=== PATIENT | male | born 1960 | race Caucasian/White ===

== ENCOUNTER → 2019-09-07 | Outpatient (CLI) | payer OTHER | LOC: M.CT 12:51 | PROVIDERS: ATTEND Family Medicine | DX: Z13.6 Encounter for screening for cardiovascular disorders (principal) ==

== ENCOUNTER → 2019-09-14 | Outpatient (CLI) | payer BC | LOC: M.CT 10:15 | PROVIDERS: ATTEND Family Medicine | DX: K40.90 Unilateral inguinal hernia, without obstruction or gangrene, not specified as recurrent (principal); K57.30 Diverticulosis of large intestine without perforation or abscess without bleeding; I70.0 Atherosclerosis of aorta ==

== ENCOUNTER → 2019-12-21 | Outpatient (CLI) | payer BC ==
--- NOTE | 2019-12-21 14:22 | 2DMMODE ---
[place] [address] 2 D/M-MODE ECHOCARDIOGRAM Name: CARTER LÓPEZ Room: [facility]#: [id number] Admission: 12/21/19 Attend Phys: Curry Hager, Discharge: Date of : 58 Date of Service: 12/21/19 1421 Report #: [id number] THIS REPORT FOR: cc: Mary Ascencio,Mary Borrero,Nishant Beard MD [facility] ~ APPROVED REPORT Study performed: 12/21/2019 10:21:59 EXAM: Comprehensive 2D, Doppler, and color-flow Echocardiogram Patient Location: Out-Patient BSA: 1.92 HR: 62 bpm BP: 140/87 mmHg Other Information Study Quality: Good Indications Abnormal screening 2D Dimensions IVSd: 11.16 (7-11mm) LVOT Diam: 20.59 (18-24mm) LVDd: 46.89 mm PWd: 10.08 (7-11mm) Ascending Ao: 33.68 (22-36mm) LVDs: 31.29 (25-40mm) Aortic Root: 36.70 mm Volumes Left Atrial Volume (Systole) LA ESV Index: 26.30 mL/m2 Aortic Valve AoV Peak Lazaro.: 0.97 m/s AO Peak Gr.: 3.78 mmHg LVOT Max P.38 mmHg AO Mean Gr.: 1.90 mmHg LVOT Mean P.39 mmHg LVOT Max V: 0.92 m/s AO V2 VTI: 18.79 cm LVOT Mean V: 0.52 m/s CHELLY (VTI): 3.53 cm2 LVOT V1 VTI: 19.93 cm Mitral Valve E/A Ratio: 0.98 [place] [address] 2 D/M-MODE ECHOCARDIOGRAM Name: CARTER LÓPEZ Room: [facility]#: [id number] Admission: 12/21/19 Attend Phys: Curry Hager, Discharge: Date of : 58 Date of Service: 12/21/19 1421 Report #: [id number] MV Decel. Time: 232.06 ms MV E Max Lazaro.: 0.58 m/s MV PHT: 67.30 ms MVA (PHT): 3.27 cm2 TDI E/Lateral E': 4.14 E/Medial E': 5.27 Medial E' Lazaro.: 0.11 m/s Lateral E' Lazaro.: 0.14 m/s Pulmonary Valve PV Peak Lazaro.: 0.98 m/s PV Peak Gr.: 3.85 mmHg Tricuspid Valve RAP Estimate: 5.00 mmHg TR Peak Gr.: 23.07 mmHg RVSP: 28.07 mmHg PA Pressure: 28.07 mmHg Left Ventricle The left ventricle is normal size. There is normal LV segmental wall motion. There is normal left ventricular wall thickness. Left ventricular systolic function is normal. The left ventricular ejection fraction is within the normal range. LVEF is 55%. The left ventricular diastolic function is normal. Right Ventricle The right ventricle is normal size. The right ventricular systolic function is normal. Atria The left atrium size is normal. The right atrium size is normal. Aortic Valve The aortic valve is normal in structure. No aortic regurgitation is present. There is no aortic valvular stenosis. Mitral Valve The mitral valve is normal in structure. Mild mitral regurgitation. No evidence of mitral valve stenosis. Tricuspid Valve The tricuspid valve is normal in structure. Mild tricuspid regurgitation[place] [address] 2 D/M-MODE ECHOCARDIOGRAM Name: CARTER LÓPEZ Room: [facility]#: [id number] Admission: 12/21/19 Attend Phys: Curry Hager, Discharge: Date of : 58 Date of Service: 12/21/19 1421 Report #: [id number] The pulmonary valve is normal in structure. There is no pulmonic valvular regurgitation. Great Vessels The aortic root is normal in size. IVC is normal in size and collapses >50% with inspiration. Pericardium There is no pericardial effusion. <Conclusion> The left ventricle is normal size. There is normal left ventricular wall thickness. Left ventricular systolic function is normal. The left ventricular ejection fraction is within the normal range. LVEF is 55%. The left ventricular diastolic function is normal. The right ventricle is normal size. The left atrium size is normal. The aortic valve is normal in structure. The mitral valve is normal in structure. Mild mitral regurgitation. The tricuspid valve is normal in structure. Mild tricuspid regurgitation. IVC is normal in size and collapses >50% with inspiration. There is no pericardial effusion. There is normal LV segmental wall motion. <ELECTRONICALLY SIGNED> By: Nishant Don MD, FACC 12/21/19 142 20 142 Nishant Don MD, FACC /INF
--- NOTE | 2019-12-21 17:57 | CARDNUC ---
[place] [address] CARDIAC NUCLEAR IMAGING REPORT Name: CARTER LÓPEZ Room: [facility]#: [id number] Admission: 12/21/19 Attend Phys: Curry Hager, Discharge: Date of : 58 Date of Service: 12/21/19 1756 Report #: [id number] THIS REPORT FOR: cc: Mary Ascencio Linda J. DO Liston, Michael J. MD [facility] ~ APPROVED REPORT Study performed: 12/21/2019 09:39:09 Exam: Nuclear Stress Test Indication: ABN CT of heart, increased calcium score, ABN EKG. Patient Location: Out-Patient Stress Tech: Su Dean Stress Nurse: Mitchell Redd Tech:PHILLY Casper Ht: 5 ft 9 in Wt: 168 lbs BSA: 1.92 m2 BMI: 24.80 Medical History Medical History: HTN, Hyperlipidemia, Smoking, ABN EKG, LVH, ABN CT of heart, increased calcium score. Medications: Norvasc, Atorvastatin, Fish Oil. Allergies: No known drug allergies Cardiac Risk Factors: Current Smoker, Age, FHX of CAD, HTN, Hyperlipidemia, LVH, increased calcium score, ABN CT of heart. Previous Cardiac Procedures: None Pretest Chest Pain Characteristics: No chest pain Exercise History: Physically active Physical Disabilities: None noted. Meds Held (24 hrs): Norvas. Stress Test Details Stress Test: Exercise stress testing was performed using a Greg protocol. HR Resting HR: 62 bpm Max Heart Rate (APMHR): 160 bpm Max HR Achieved: 162 bpm Target HR (85% APMHR): 136 bpm % of APMHR: 101 Recovery HR: 90 [place] [address] CARDIAC NUCLEAR IMAGING REPORT Name: CARTER LÓPEZ Room: [facility]#: [id number] Admission: 12/21/19 Attend Phys: PoojaAnahy Watkins Madan, Discharge: Date of : 58 Date of Service: 12/21/19 1756 Report #: [id number] Resting BP: 140/87 mmHg Max BP: 215/98 mmHg ECG Resting ECG: Sinus Rhythm Stress ECG: Sinus Tachycardia ST Change: Upsloping ST depression Maximum ST Deviation: 0.5 mm Arrhythmia: None Recovery ECG: Sinus Rhythm Recovery ST Change: Upsloping ST depression Recovery ST Deviation: 0.5 mm Recovery Arrhythmia: None Clinical Reason for Termination: Completed protocol, Maximal effort. Stress Symptoms: Dyspnea. Exercise duration: 10 min 14 sec Exercise capacity: 12.25 METs Overall Exercise Capacity for Age: Superior The patient tolerated standard Greg protocol exercise without significant cardiac symptoms. Patient exhibited good exercise tolerance. Nurse Comments See printed documentation. Stress ECG Conclusion The baseline twelve-lead EKG shows sinus rhythm without significant ST segment or T wave abnormality. EKGs obtained during post exercise show sinus rhythm and sinus tachycardia with 0.[address] segment depression. There were no stress-induced arrhythmias. NM EXAM: Myocardial Perfusion REST/STRESS Imaging Protocol: Rest Tc-99m/Stress Tc-99m 1 day Resting Data Rest SPECT myocardial perfusion imaging was performed in supine position 30 minutes following the intravenous injection of 11.1 mCi of Tc-99m Sestamibi. Time of rest injection: 754 Date: 12/21/2019 The images were gated to evaluate regional wall motion and calculate left ventricular ejection fraction. Administration Route: IV Administration Site: [place] [address] CARDIAC NUCLEAR IMAGING REPORT Name: CARTER LÓPEZ Room: [facility]#: [id number] Admission: 12/21/19 Attend Phys: Curry Méndezgs, Discharge: Date of : 58 Date of Service: 12/21/19 1756 Report #: [id number] Exercise Stress At peak stress, the patient was injected intravenously with 35.3mCi of Tc-99m Sestamibi. Time of stress injection: 929 Date: 12/21/2019 Administration Route: IV Administration Site: Right Hand Gated Stress SPECT was performed 30 minutes after stress injection. The images were gated to evaluate regional wall motion and calculate left ventricular ejection fraction. Prone imaging was performed. Study Quality Study: Good Artifact: Mild Diaphragmatic artifact Study Data At rest, the left ventricular ejection fraction was 48%.. Post stress, the left ventricular ejection was 50%.. TID = 0.89. Perfusion Perfusion studies obtained at rest and post exercise stress show no significant fixed or reversible defects. Wall Motion Global LV systolic function appears to be at the lower limits of normal without obvious focal wall motion abnormality. Nuclear Conclusion ECG Findings: negative for ischemia Clinical Findings: negative for ischemia Nuclear Findings: negative for ischemia Exercise Capacity: normal Left Ventricular Function: Lower limits of normal Perfusion study show no defect to suggest infarct or ischemia. Left ventricular systolic function appears to be at the lower limits of normal without obvious wall motion abnormality. This is not a high risk study. <Conclusion> The baseline twelve-lead EKG shows sinus rhythm without significant ST segment or T wave abnormality. EKGs obtained [place] [address] CARDIAC NUCLEAR IMAGING REPORT Name: CARTER LÓPEZ Room: [facility]#: [id number] Admission: 12/21/19 Attend Phys: Curry Hager, Discharge: Date of : 58 Date of Service: 12/21/19 1756 Report #: [id number] show sinus rhythm and sinus tachycardia with 0.[address] segment depression. There were no stress-induced arrhythmias. <ELECTRONICALLY SIGNED> By: Charbel Joshi MD, FACC 12/21/191755 55 55 Charbel Joshi MD, FACC /INF
== END ==
LOC: M.NUC 12-02 10:32
PROVIDERS: ATTEND Internal Medicine
DX: I08.1 Rheumatic disorders of both mitral and tricuspid valves (principal); R00.0 Tachycardia, unspecified; R93.1 Abnormal findings on diagnostic imaging of heart and coronary circulation; I10 Essential (primary) hypertension; E78.00 Pure hypercholesterolemia, unspecified; F17.210 Nicotine dependence, cigarettes, uncomplicated; Z82.49 Family history of ischemic heart disease and other diseases of the circulatory system